=== PATIENT | female | born 1970 | race Caucasian/White ===

== ENCOUNTER 2023-01-01 17:00 | Outpatient (REF) | payer BC, SELFPAY ==
--- NOTE | 2023-01-01 15:30 | SKI_PTH ---
PATIENT: La Nena Rouse LOC: [facility] U#:[id number] AGE/SX: 52/F ROOM: RE01/01/[address]: Zayra Jensen : 1970 BED: DIS: 01/01/2023 SPEC #: [id number] RECD: 01/02/23 12:24 STATUS: JUAN DAVID RELisy #: [id number] GADIEL: 01/01/23 15:[address]: Zayra Jensen DEPT: Surgical Specimen RECD BY: Leanna Cho ENTERED: 01/02/23 12:24 SP TYPE: LIDIA BROOKS DR: Estefania Stapleton Tissues: 1 - SKIN BIOPSY(SHAVE/PUNCH) 2 - SKIN BIOPSY(SHAVE/PUNCH) Procedures: SKIN LEVEL 4 Comments: [id number]
== END 2023-01-01 17:01 | disposition home or self-care (01) ==
LOC: NCHCN 17:00
PROVIDERS: PCP Family Medicine; Visit Provider Family Medicine
DX: L82.1 Other seborrheic keratosis (principal); L98.8 Other specified disorders of the skin and subcutaneous tissue
CPT/HCPCS: 88305

== ENCOUNTER 2023-06-04 09:51 | Outpatient (REF) | payer BC, SELFPAY ==
--- NOTE | 2023-06-04 08:45 | PAPFT_PTH ---
PATIENT: La Nena Rouse LOC: [facility] U#:[id number] AGE/SX: 52/F ROOM: RE06/04/[address]: Zayra Jensen : 1970 BED: DIS: 06/04/2023 SPEC #: [id number] RECD: 06/04/23 17:31 STATUS: JUAN DAVID RELisy #: [id number] GADIEL: 06/04/23 08:[address]: Zayra Jensen DEPT: [facility] Cytology RECD BY: Leanna Cho ENTERED: 06/04/23 17:31 SP TYPE: PAPFT OTHR DR: Estefania Stapleton Tissues: 1 - CX/ENDOCX FOR PAP SMEARS Procedures: PAP THIN PREP/[facility] Screening HPV DNA PROBE Comments: [id number]
[2023-06-04 15:08] LABS: ALT 56 U/L (14-59); AST 32 U/L (15-37); Albumin 3.4 g/dL (3.4-5.0); Alkaline Phosphatase 74 U/L (46-116); Anion Gap 10.9 mmol/L (3-11); BUN 26 mg/dL (7-18); Bilirubin, Total 0.4 mg/dL (0.2-1.0); CO2 23.1 mmol/L (21.0-32.0); CREATININE 0.9 mg/dL (0.55-1.02); Calcium 9.1 mg/dL (8.5-10.1); Chloride 105 mmol/L (98-107); Estimated GFR 76.44 (mL/min/1.73m2); Glucose 177 mg/dL (74-106); Potassium 3.6 mmol/L (3.5-5.1); Sodium 139 mmol/L (136-145); Total Protein 7.3 g/dL (6.4-8.2)
[2023-06-04 15:25] LABS: Hemoglobin A1C 5.9 % (<5.7)
== END 2023-06-04 09:52 | disposition home or self-care (01) ==
LOC: NCHCN 09:51
PROVIDERS: PCP Family Medicine; Visit Provider Family Medicine
DX: Z00.00 Encounter for general adult medical examination without abnormal findings (principal); Z12.4 Encounter for screening for malignant neoplasm of cervix
CPT/HCPCS: 80053; 88142; 83036; 87624

== ENCOUNTER 2025-02-22 13:49 | Outpatient (REF) | payer BC, SELFPAY | END 2025-02-22 13:50 | disposition home or self-care (01) | LOC: NCHCN 13:49 | PROVIDERS: PCP Family Medicine; Visit Provider Family Medicine | DX: R30.0 Dysuria (principal); R82.89 Other abnormal findings on cytological and histological examination of urine | CPT/HCPCS: 87086 ==

== ENCOUNTER 2025-02-28 14:40 | Outpatient (REF) | payer BC, SELFPAY | END 2025-02-28 14:41 | disposition home or self-care (01) | LOC: NCHCN 14:40 | PROVIDERS: PCP Family Medicine; Visit Provider Nurse Practitioner Family | DX: N39.0 Urinary tract infection, site not specified (principal) | CPT/HCPCS: 87086 ==